=== PATIENT | male | born 1945 | race Caucasian/White ===

== ENCOUNTER 2016-11-16 16:27 | Emergency (ER) | payer MEDICARE, BC ==
--- NOTE | ~2016-11-16 | ER ---
PATIENT'S NAME: HIREN MACHADO [facility] AGE: 71 Y [address] ROOM: [place], [place] [address] LOCATION: [facility] ADMIT DATE: 11/16/2016 ER/Outpatient Report DISCHARGE DATE: 11/16/2016 FAMILY PHYSICIAN: Adarsh Agustin MD ATTENDING PHYSICIAN: Srinivasan Whyte TIME OF ARRIVAL: 1632 hours. TIME OF EXAM: 1632 hours. CHIEF COMPLAINT: Suicidal ideation. HISTORY OF PRESENT ILLNESS: The patient states that he was diagnosed with bipolar disease 10 years ago. Has had depression off and on, but he is usually able to cope with it. He has always had suicidal ideations. He states he has had increased stress over the past 2 weeks. 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 He states he has had increased depression over the last 2 weeks and has totally run out of his hydrochlorothiazide and Plavix, and his diabetic medications are close to running out too. He states meds are available at the pharmacy, he just did not go pick them up. He has not done any self-harm today. MEDICATIONS: On his chart and reviewed by me. ALLERGIES: HE HAS NO KNOWN ALLERGIES. PAST MEDICAL HISTORY: Insulin-dependent diabetes, shingles, hypertension. 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 PAST SURGERIES: Left inguinal hernia repair and kidney stones. SOCIAL HISTORY: He denies the use of tobacco, drugs, or alcohol. REVIEW OF SYSTEMS: PATIENT'S NAME: HIREN MACHADO [facility] AGE: 71 Y [address] ROOM: [place], [place] [address] LOCATION: [facility] ADMIT DATE: 11/16/2016 ER/Outpatient Report DISCHARGE DATE: 11/16/2016 FAMILY PHYSICIAN: Adarsh Agustin MD ATTENDING PHYSICIAN: Srinivasan Whyte All negative other than those mentioned in the HPI. PHYSICAL EXAMINATION: VITAL SIGNS: He weighed 89 kg, blood pressure was 196/98, pulse of 104, respirations 18, temperature of 98.3, O2 sat is 94% on room air. GENERAL: He is awake, alert, and oriented x4. SKIN: [place], warm, and dry. RESPIRATIONS: Even and nonlabored. HEENT: Pupils are equal reactive to light. Extraocular movement is intact. TMs are pearly [place]ogan. Oropharynx is clear. NECK: Supple. No lymphadenopathy. LUNGS: Lung sounds are clear throughout. HEART: Regular rate and rhythm. ABDOMEN: Soft, nondistended. Bowel sounds are present. NEURO: Cranial nerves 2 through 12 are grossly intact. LABORATORY DATA AND X-RAYS: Lab work was drawn. CBC is within normal limits. Chem panel: Sodium is 140, potassium of 3.9, chloride 106, his glucose was 198, BUN is 26 with a creatinine of 1.4. Alcohol is negative. Acetaminophen is negative. Salicylates are negative. His TSH is 1.44. Clean-catch UA was obtained, it was negative for leukocytes and nitrites. Positive for glucose. Drug screen was completed, it is negative. Did do a PTT, it was 26 with a protime of 11.1 and an INR of 1.06. He was monitored and [facility] was contacted. Freddy Haas did come over and evaluated the patient, and agrees that the patient needs to be placed in inpatient status at [facility]. Arrangements were made for his transfer. IMPRESSION: Depression. PLAN: The patient was transferred per EMS to [facility] for inpatient psychiatric treatment. EDNA KNAPP APRN FOR DO SAEED HINSON/jl /[id number] d: 11/17/16 0025 t: 11/18/16 1820, OUTPATIENT REPORT
[2016-11-16 16:57] LABS: BASOPHIL # 0.1 K/uL (0.0-0.2); BASOPHIL % 0.7 %; EOSINOPHIL # 0.2 K/uL (0.0-0.5); EOSINOPHIL % 2.2 %; HEMOGLOBIN 14.6 g/dL (11.0-16.0); IMMATURE GRANULOCYTE % 0.1 %; LYMPHOCYTE # 2.4 K/uL (0.8-4.0); LYMPHOCYTE % 29.5 %; MCH 29.6 pg (27.0-34.0); MCHC 34.8 gm/dL (32.0-36.5); MONOCYTE # 0.5 K/uL (0.0-1.0); MONOCYTE % 6.6 %; MPV 10.7 fl (9.4-12.4); NEUTROPHIL % 60.9 %; NRBC % 0 /100WBC (0-0.00); PLATELET COUNT 213 K/uL (150-450); RBC 4.94 M/uL (3.50-5.50); RDW-CV 12.8 % (11.9-14.6); WBC 8.2 K/uL (4.0-11.0)
[2016-11-16 17:02] LABS: BILIRUBIN URINE NEGATIVE (NEGATIVE); BLOOD URINE NEGATIVE /UL (NEGATIVE); COLOR URINE YELLOW (YELLOW); GLUCOSE URINE 1000 mg/dL (NEGATIVE); KETONE URINE NEGATIVE (NEGATIVE); LEUKOCYTES URINE NEGATIVE /UL (NEGATIVE); NITRITE URINE NEGATIVE (NEGATIVE); PROTEIN URINE NEGATIVE (NEGATIVE); SPEC GRAVITY URINE 1.025 (1.003-1.035); TURBIDITY URINE CLEAR (CLEAR); UROBILINOGEN URINE NORMAL (NORMAL)
[2016-11-16 17:06] LABS: INR - (THERAPEUTIC) 1.06 (0.92-1.07); PROTIME 11.1 SECONDS (9.8-11.4)
[2016-11-16 17:22] LABS: ALBUMIN 4.2 gm/dL (3.5-5.0); ALK PHOS 58 IU/L (33-138); ALT 63 IU/L (12-78); ANION GAP 12.9 (10.0-19.0); AST 29 IU/L (10-40); BLOOD UREA NITROGEN 26 mg/dL (6-24); CALCIUM 9.2 mg/dL (8.5-10.5); CHLORIDE 106 mMol/L (96-110); CO2 25 mMol/L (22-32); CREATININE 1.4 mg/dL (0.6-1.3); ESTIMATED GFR (MDRD EQUATION) 50; POTASSIUM 3.9 mMol/L (3.7-5.1); SODIUM 140 mMol/L (135-145); TOTAL BILIRUBIN 0.7 mg/dL (0.0-1.5); TOTAL PROTEIN 7.6 g/dL (6.0-8.4)
[2016-11-16 17:33] LABS: BARBITURATE NEGATIVE (NEGATIVE); COCAINE NEGATIVE (NEGATIVE); OPIATES NEGATIVE (NEGATIVE)
[2016-11-16 17:38] LABS: AMPHETAMINE NEGATIVE (NEGATIVE)
[2016-11-16] MEDS ORDERED: LANTUS (IN100 UNIT/M SUB-Q (22:39)
[2016-11-16] MEDS ORDERED: GLUCOPHAGE850 MG PO ×2 (22:47→22:49)
[2016-11-16] MEDS ORDERED: HYDRODIURIL25 MG PO (22:56)
[2016-11-16] MEDS ORDERED: AMLODIPINE BESYL5 MG PO (23:07)
[2016-11-16] MEDS ORDERED: PLAVIX75 MG PO (23:11)
[2016-11-16] MEDS ORDERED: ZANTAC (NON-FO150 MG PO (23:13)
[2016-11-16] MEDS ORDERED: ECOTRIN325 MG PO (23:15)
[2016-11-16] MEDS ORDERED: AMARYL4 MG PO (23:16)
[2016-11-17] MEDS ORDERED: HUMALOG MI100 UNIT/5 SUB-Q (00:08)
[2016-11-17] MEDS ORDERED: HUMALOG100 UNIT/3 SUB-Q (08:38)
[2016-11-24] MEDS ORDERED: PEPCID20 MG PO (11:32)
[2016-11-24] MEDS ORDERED: PROZAC20 MG PO (11:38)
[2016-11-24] MEDS ORDERED: LEVEMIR100 UNIT/1 SUB-Q (11:46)
[2016-11-24] MEDS ORDERED: CARAFATE1 GM PO (12:01)
== END 2016-11-16 20:11 | disposition disaster alternative care site (69) ==
LOC: GMED 16:27
PROVIDERS: Emergency Medicine; Nurse Practitioner Family
DX: F32.9 Major depressive disorder, single episode, unspecified (principal); I10 Essential (primary) hypertension; E11.9 Type 2 diabetes mellitus without complications; Z87.442 Personal history of urinary calculi; Z86.73 Personal history of transient ischemic attack (TIA), and cerebral infarction without residual deficits; Z98.890 Other specified postprocedural states; Z79.899 Other long term (current) drug therapy; Z79.82 Long term (current) use of aspirin
CPT/HCPCS: G0480

== ENCOUNTER → 2016-11-16 | Outpatient (CLI) | payer MEDICARE, BC ==
[~2016-11-16] MED LIST: AMARYL4 MG PO; AMLODIPINE BESYL5 MG PO; CARAFATE1 GM PO; ECOTRIN325 MG PO; GLUCOPHAGE850 MG PO; HUMALOG MI100 UNIT/5 SUB-Q; HUMALOG100 UNIT/3 SUB-Q; HYDRODIURIL25 MG PO; LANTUS (IN100 UNIT/M SUB-Q; LEVEMIR100 UNIT/1 SUB-Q; PEPCID20 MG PO; PLAVIX75 MG PO; PROZAC20 MG PO; ZANTAC (NON-FO150 MG PO
== END | disposition disaster alternative care site (69) ==
LOC: GAMB 20:05
DX: R45.851 Suicidal ideations (principal); Z79.84 Long term (current) use of oral hypoglycemic drugs; Z79.01 Long term (current) use of anticoagulants; Z79.82 Long term (current) use of aspirin; Z79.4 Long term (current) use of insulin; Z79.899 Other long term (current) drug therapy; Z79.02 Long term (current) use of antithrombotics/antiplatelets
CPT/HCPCS: A0425; A0428